=== PATIENT | male | born 1970 | race American Indian/Alaskan Native ===

== ENCOUNTER 2021-08-17 10:00 | Outpatient (CLI) | payer OTHER ==
--- NOTE | 2021-08-17 11:37 | XRay Report ---
LUMBAR SPINE 3 VIEWS INDICATION: Z02.71 ENCOUNTER FOR DISABILITY DETERMINATION COMPARISON: 09/06/2013 FINDINGS: There is no fracture, subluxation, or other acute radiographic abnormality of the lumbar spine. There is slight superior endplate compression of the L4 vertebral body. There is mild anterior osteophyte formation throughout the lumbar spine. There is mild disc space narrowing at L4-5. IMPRESSION: There is slight superior endplate compression of the anterior aspect of the L4 vertebral body which appears chronic but has occurred in the interval. There is mild disc space narrowing at L4 -5. There are small anterior osteophytes. Signer Name: Avery Mujica MD Signed: 08/17/2021 11:33 AM Workstation Name: [id number]
--- NOTE | 2021-08-17 11:39 | XRay Report ---
Cervical spine 3 views Indication: Z02.71 ENCOUNTER FOR DISABILITY DETERMINATION Findings: There is no fracture, subluxation, or other acute radiographic abnormality of the cervical spine. Changes of anterior cervical discectomy and fusion at C3-4 noted. The hardware appears intact. Prever tebral soft tissues unremarkable. There is prominent anterior osteophyte formation at C4-5. Signer Name: Avery Mujica MD Signed: 08/17/2021 11:34 AM Workstation Name: [id number]
== END 2021-08-17 10:01 | disposition home or self-care (01) ==
LOC: XRAY 10:00
PROVIDERS: ATTEND Internal Medicine
DX: M48.061 Spinal stenosis, lumbar region without neurogenic claudication (principal); M43.22 Fusion of spine, cervical region; M25.78 Osteophyte, vertebrae
CPT/HCPCS: 72040; 72100